=== PATIENT | female | born 1940 | race Caucasian/White ===

== ENCOUNTER 2019-08-02 06:38 | Emergency (ER) | payer MEDICARE ==
[~2019-08-02] VITALS: Ht 165.1 cm; Wt 59.0 kg
[2019-08-02 07:04] VITALS: BP 153/63
--- NOTE | 2019-08-02 07:19 | Emergency Room Report ---
History of Present Illness General Chief Complaint: Chest Pain Source: Patient Present Illness HPI Disclaimer: Please note that this report is being documented using [employer] technology. This can lead to erroneous entry secondary to incorrect interpretation by the dictating instrument. HPI: 79-year-old female presents for evaluation of chest pain. She has a history of hypertension hypercholesterolemia. She awoke with chest pain approximately 5:45 AM that was midsternal radiating to the left jaw and the left arm. Not had similar episodes of chest pain. Reports negative stress test February 2019. Follows with cardiology at [facility]. She took 1 of her 's nitroglycerin tablets which relieved some of her discomfort but made her feel weak. She currently denies chest pain but continues to feel weak. Received aspirin from EMS. Denies any recent fever, chills, shortness of breath , cough, URI symptoms. Denies nausea, vomiting, diarrhea, lower GI complaints. 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 EOMI. Cardiovascular: RRR. S1 and S2 normal. No murmur appreciated Resp: Normal work of breathing. No cough, wheezing or crackles appreciated Abdomen: Abdomen is soft, nondistended. Nontender Skin: Intact. No abrasions, laceration or rash over the exposed skin MSK: Normal tone and bulk. Moving all extremities. No obvious deformity. Neuro: Awake and alert. Mentating appropriately. Medical Decision Making ER Course This a 79-year-old female presenting for evaluation of chest pain. Differential includes but not limited to angina, ACS, GERD, musculoskeletal chest pain, pneumonia, bronchitis, pneumothorax, pleural effusion to name a few. Her EKG shows sinus bradycardia largely unremarkable otherwise without signs of acute ischemia. She received aspirin and 1 nitroglycerin prior to arrival. She reports fatigue and weakness but no chest pain currently. Labs show negative cardiac enzymes x2. Other labs within normal limits. The patient remains chest pain-free and has no complaints at this time. Discussed admission for further cardiac rule out however the patient declined. I did discuss her case with her client partner at [facility], Dr. Trent who stated that she did have a negative stress test recently and otherwise has had a negative cardiac work-up thus far. She will be seen in his office over the next 1 or 2 days. She will call the office after discharge to schedule an appointment for reevaluation. Her daughter is here and able to take the patient home. Again she declined admission or further work-up at this time. Strict return precautions were discussed. She understands and agrees with treatment plan. Laboratory Tests Test 08/02/19 07:15 08/02/19 10:00 White Blood Count 6.7 K/UL (4.8-10.8) Red Blood Count 4.23 M/UL (4.20-5.40) Hemoglobin 11.9 G/DL (12.0-16.0) L Hematocrit 37.8 % (37.0-47.0) Mean Corpuscular Volume 89 FL (80-99) Mean Corpuscular Hemoglobin 28.1 PG (27.0-31.0) Mean Corpuscular Hemoglobin Concent 31.5 G/DL (32.0-36.0) L Red Cell Distribution Width 13.2 % (11.6-14.8) Platelet Count 157 K/UL (150-450) Mean Platelet Volume 9.3 FL (6.5-10.1) Neutrophils (%) (Auto) 57.7 % (45.0-75.0) Lymphocytes (%) (Auto) 29.0 % (20.0-45.0) Monocytes (%) (Auto) 9.6 % (1.0-10.0) Eosinophils (%) (Auto) 2.3 % (0.0-3.0) Basophils (%) (Auto) 1.4 % (0.0-2.0) Prothrombin Time 10.5 SEC (9.30-11.50) Prothrombin Time INR 0.9 (0.9-1.1) Activated Partial Thromboplast Time 25 SEC (23-33) Sodium Level 141 MMOL/L (136-145) Potassium Level 4.0 MMOL/L (3.5-5.1) Chloride Level 107 MMOL/L (98-107) Carbon Dioxide Level 27 MMOL/L (21-32) Anion Gap 7 mmol/L (5-15) Blood Urea Nitrogen 31 mg/dL (7-18) H Creatinine 1.1 MG/DL (0.55-1.30) Estimated Glomerular Filtration Rate 47.9 mL/min (>60) Glucose Level 95 MG/DL (74-106) Calcium Level 8.4 MG/DL (8.5-10.1) L Total Bilirubin 0.2 MG/DL (0.2-1.0) Aspartate Amino Transferase (AST) 17 U/L (15-37) Alanine Aminotransferase (ALT) 26 U/L (12-78) Alkaline Phosphatase 86 U/L (46-116) Troponin I 0.000 ng/mL (0.000-0.056) 0.000 ng/mL (0.000-0.056) Pro-B-Type Natriuretic Peptide 142 pg/mL (0-125) H Total Protein 6.7 G/DL (6.4-8.2) Albumin 3.4 G/DL (3.4-5.0) Globulin 3.3 g/dL Lipase 116 U/L (73-393) EKG Diagnostic Results EKG Time: 06:54 Rate: bradycardiac Rhythm: NSR ST Segments: no acute changes Other Impression Sinus bradycardia, normal axis, normal intervals, no ST segment changes. Rhythm Strip Diag. Results Rhythm Strip Time: 06:54 EP Interpretation: yes Rate: 55 Rhythm: NSR, no PVC's, no ectopy Chest X-Ray Diagnostic Results Chest X-Ray Diagnostic Results : Chest X-Ray Ordered: Yes # of Views/Limited/Complete: 1 View Indication: Chest Pain EP Interpretation: Yes Interpretation: no consolidation, no pneumothorax, no acute cardiopulmonary disease Impression: No acute disease Electronically Signed by: Electronically signed by Dr. Teto Tong Last Vital Signs Date Time Temp Pulse Resp B/P (MAP) Pulse Ox O2 Delivery O2 Flow Rate FiO2 08/02/19 07:04 55 15 Room Air 08/02/19 07:04 98.6 153/63 100 Disposition: HOME, SELF-CARE Condition: Stable Teto Tong MD Aug 02, 2019 07:19
[2019-08-02 07:39] LABS: BASOPHILS % (AUTO) 1.4 % (0.0-2.0); EOSINOPHILS % (AUTO) 2.3 % (0.0-3.0); HEMATOCRIT 37.8 % (37.0-47.0); HEMOGLOBIN 11.9 G/DL (12.0-16.0); MEAN CORPUSCULAR VOLUME 89 FL (80-99); MONOCYTES % (AUTO) 9.6 % (1.0-10.0); NEUTROPHILS % (AUTO) 57.7 % (45.0-75.0); PLATELET COUNT 157 K/UL (150-450); RED BLOOD COUNT 4.23 M/UL (4.20-5.40); RED CELL DISTRIBUTION WIDTH 13.2 % (11.6-14.8); WHITE BLOOD COUNT 6.7 K/UL (4.8-10.8)
[2019-08-02 07:48] LABS: INR 0.9 (0.9-1.1)
[2019-08-02 08:08] LABS: ALANINE AMINOTRANSFERASE 26 U/L (12-78); ALBUMIN 3.4 G/DL (3.4-5.0); ALKALINE PHOSPHATASE 86 U/L (46-116); ANION GAP 7 mmol/L (5-15); BILIRUBIN,TOTAL 0.2 MG/DL (0.2-1.0); CALCIUM 8.4 MG/DL (8.5-10.1); CARBON DIOXIDE 27 MMOL/L (21-32); CHLORIDE 107 MMOL/L (98-107); CREATININE 1.1 MG/DL (0.55-1.30); SODIUM 141 MMOL/L (136-145)
[2019-08-02 08:18] LABS: ASPARTATE AMINO TRANSFERASE 17 U/L (15-37); BLOOD UREA NITROGEN 31 mg/dL (7-18)
--- NOTE | 2019-08-02 10:02 | Diagnostic Imaging Report ---
Procedure: XRAY Chest 1v Reason for study: Chest pain Comparison films: None. FINDINGS: A single one view chest is obtained. Vascularity is normal. The lung mazariegos are clear bilaterally. Cardiac and mediastinal silhouette are within normal limits. CP angles are sharp. The bony thorax appear unremarkable. IMPRESSION: NO ACUTE CARDIOPULMONARY DISEASE.
[2019-08-02 11:01] VITALS: BP 149/60
== END 2019-08-02 11:00 | disposition home or self-care (01) ==
LOC: EDBD 06:38 → EMR 07:10
DX: R07.9 Chest pain, unspecified (principal); I10 Essential (primary) hypertension; E78.00 Pure hypercholesterolemia, unspecified; E78.5 Hyperlipidemia, unspecified; F32.9 Major depressive disorder, single episode, unspecified; Z96.643 Presence of artificial hip joint, bilateral; R00.1 Bradycardia, unspecified; R53.83 Other fatigue
CPT/HCPCS: 36415; 71045; 80053; 83690; 83880; 84484; 85025; 85610; 85730; 93005; 99284